=== PATIENT | female | born 1940 ===

== ENCOUNTER 2022-01-01 11:11 | Outpatient (CLI) | payer MEDICARE, OTHER | END 2022-01-01 11:12 | disposition home or self-care (01) | LOC: LABBT 11:11 | PROVIDERS: ATTEND Internal Medicine Gastroenterology | DX: A04.72 Enterocolitis due to Clostridium difficile, not specified as recurrent (principal); Z20.822 Contact with and (suspected) exposure to COVID-19 | CPT/HCPCS: U0003; U0005 ==

== ENCOUNTER 2022-01-06 12:48 | Day surgery (SDC) | payer MEDICARE, OTHER ==
[2022-01-02 12:22] VITALS: BMI 24.6
[2022-01-06] MEDS ORDERED: Lidocaine 1% PF 5 ML VIAL ONE (14:14)
[2022-01-06] MEDS ORDERED: PROPOFOL 200 MG/20 ML VIAL ONE (14:14)
== END 2022-01-06 15:45 | disposition home or self-care (01) ==
LOC: SDC 12:48
PROVIDERS: ATTEND Internal Medicine Gastroenterology
PROC: 3E0H8GC Introduction of Other Therapeutic Substance into Lower GI, Via Natural or Artificial Opening Endoscopic (ICD-10-PCS; principal; 2022-01-06)
DX: A04.71 Enterocolitis due to Clostridium difficile, recurrent (principal); K57.30 Diverticulosis of large intestine without perforation or abscess without bleeding; E78.5 Hyperlipidemia, unspecified; I11.0 Hypertensive heart disease with heart failure; I50.9 Heart failure, unspecified; K21.9 Gastro-esophageal reflux disease without esophagitis; M19.90 Unspecified osteoarthritis, unspecified site; E78.00 Pure hypercholesterolemia, unspecified; Z79.01 Long term (current) use of anticoagulants; Z79.899 Other long term (current) drug therapy
CPT/HCPCS: 45378; C1713; J2704